=== PATIENT | female | born 1960 | race Two or more races ===

== ENCOUNTER 2021-04-18 05:40 | Day surgery (SDC) | payer OTHER ==
[~2021-04-18 05:40] MED LIST: CARDIZEM PO; [UNRECOGNIZED DRUG - OTHER] PO
== END 2021-04-18 16:25 | disposition home or self-care (01) ==
LOC: CIR.AMB 05:40
PROVIDERS: ATTEND Orthopaedic Surgery Sports Medicine
DX: S83.242A Other tear of medial meniscus, current injury, left knee, initial encounter (principal); S83.282A Other tear of lateral meniscus, current injury, left knee, initial encounter; M22.42 Chondromalacia patellae, left knee; Z20.822 Contact with and (suspected) exposure to COVID-19

== ENCOUNTER 2023-02-19 07:12 | Outpatient (CLI) | payer OTHER | END 2023-02-19 07:14 | disposition home or self-care (01) | LOC: NUCLEAR 07:12 | PROVIDERS: ATTEND Internal Medicine Cardiovascular Disease | DX: I25.10 Atherosclerotic heart disease of native coronary artery without angina pectoris (principal) ==

== ENCOUNTER 2024-05-26 07:36 | Outpatient (CLI) | payer OTHER | END 2024-05-26 07:39 | disposition home or self-care (01) | LOC: NUCLEAR 07:36 | PROVIDERS: ATTEND Internal Medicine | DX: I87.312 Chronic venous hypertension (idiopathic) with ulcer of left lower extremity (principal) ==

== ENCOUNTER 2025-04-25 12:41 | Emergency (ER) | payer OTHER ==
[~2025-04-25] VITALS: Ht 160 cm; Wt 57.2 kg
[2025-04-25 14:24] VITALS: BP 124/79; O2SAT 99
[2025-04-25] MEDS ORDERED: WIXELA 100-501 EACH IH (14:27)
[2025-04-25] MEDS ORDERED: CARVEDILOL ER40 MG PO (14:27)
== END 2025-04-25 15:38 | disposition home or self-care (01) ==
LOC: ER 12:52
DX: J06.9 Acute upper respiratory infection, unspecified (principal); Z86.16 Personal history of COVID-19; Z88.6 Allergy status to analgesic agent; Z88.0 Allergy status to penicillin; Z88.2 Allergy status to sulfonamides; Z87.09 Personal history of other diseases of the respiratory system